=== PATIENT | male | born 1960 | race Caucasian/White ===

== ENCOUNTER → 2021-03-02 | Outpatient (CLI) | payer OTHER ==
[2021-03-02 15:53] LABS: BUN/CREATININE RATIO 11 (0-10)
== END ==
LOC: MRI 15:06
PROVIDERS: Internal Medicine Hematology & Oncology
DX: C34.92 Malignant neoplasm of unspecified part of left bronchus or lung (principal)
CPT/HCPCS: 36415; 70553; 80053; A9577

== ENCOUNTER → 2021-03-15 | Day surgery (SDC) | payer OTHER ==
[~2021-03-15] MED LIST: DERMACINRX FOL1 EAC2 PO; FLOMAX 0.4 MG0.4 MG PO; HYDROCODON-ACE1 EAC6 PO; LOSARTAN POTASS25 MG PO; METOPROLOL SUCC50 MG PO; OMEPRAZOLE20 M1 PO; PACERONE200 MG PO; PROAIR DIGIHAL90 MCG INH; ST. JOSEPH ASPI81 M1 PO; SYMBICORT 160-1 INHA INH; TOPROL XL25 MG PO; TRELEGY ELLIPT1 EACH INH; XARELTO20 MG PO
== END | disposition home or self-care (01) ==
LOC: OR 05:09
DX: C34.90 Malignant neoplasm of unspecified part of unspecified bronchus or lung (principal); F17.210 Nicotine dependence, cigarettes, uncomplicated; Z20.822 Contact with and (suspected) exposure to COVID-19; I10 Essential (primary) hypertension; I25.10 Atherosclerotic heart disease of native coronary artery without angina pectoris; J44.9 Chronic obstructive pulmonary disease, unspecified
CPT/HCPCS: 77001; C1769; C1788; J0690; J1100; J1642; J2001; J2250; J2405; J2704; J3010; J7030; J7040; J7120

== ENCOUNTER → 2021-03-17 | Outpatient (CLI) | payer OTHER | LOC: NM 09:30 | DX: C34.92 Malignant neoplasm of unspecified part of left bronchus or lung (principal); G89.3 Neoplasm related pain (acute) (chronic) | CPT/HCPCS: 78306; A9503 ==